=== PATIENT | male | born 1995 | race Caucasian/White ===

== ENCOUNTER → 2022-02-06 | Outpatient (CLI) | payer BC ==
[2022-02-06 10:17] LABS: BASO # 0.1 10*3/uL (0.0-0.1); BASO % 0.8 % (0.0-1.0); EOS # 0.2 10*3/uL (0.0-0.4); EOS % 2.8 % (1.0-4.0); HEMATOCRIT 50.9 % (42.0-52.0); LYMPH % 32.3 % (27.0-41.0); MEAN CELL VOLUME 87.3 fl (80.0-94.0); MEAN CORPUSCULAR HGB 30.9 pg (27.0-31.0); MEAN CORPUSCULAR HGB CONC 35.4 g/dl (33.0-37.0); MEAN PLATELET VOLUME 9.8 fl (9.6-12.3); MONO # 0.9 10*3/uL (0.1-1.0); MONO % 13.8 % (3.0-9.0); NEUT # 3.2 10*3/uL (2.3-7.9); NEUT % 50.1 % (47.0-73.0); PLATELET COUNT AUTOMATED 225 10*3/uL (130-400); RED BLOOD COUNT 5.83 10*6/uL (4.50-5.90); RED CELL DISTRI WIDTH 12.6 % (0-14.5); RETICULOCYTE % 1.91 % (0.50-2.50); WHITE BLOOD COUNT 6.3 10*3/uL (4.8-10.8)
[2022-02-06 10:28] LABS: BILIRUBIN Negative (Negative); BLOOD Negative (Negative); CLARITY Clear (Clear); COLOR Yellow (Yellow); GLUCOSE Negative (Negative); KETONE Negative (Negative); LEUKO ESTERASE Negative (Negative); NITRITE Negative (Negative); SPECIFIC GRAVITY 1.025 (1.001-1.030)
[2022-02-06 10:41] LABS: BACTERIA 1+; MUCOUS 1+; RBC 0-2 rbc/hpf (0-2)
[2022-02-06 10:44] LABS: BUN 11 mg/dl (7-24); CHLORIDE 104 mmol/L (98-107); CHOLESTEROL 141 mg/dL (<200); GAMMA GLUTAMYL TRANSPEPTIDASE 43 U/L (15-85); POTASSIUM 4.4 mmol/L (3.5-5.1); SODIUM 137 mmol/L (136-145); TRIGLYCERIDES 190 mg/dl (<150)
[2022-02-06 10:54] LABS: ALKALINE PHOSPHATASE 79 U/L (45-117); IRON 217 ug/dL (65-175); LDL CHOLESTEROL 66 mg/dL (9-159); SGOT/AST 23 IU/L (3-35); SGPT/ALT 57 U/L (12-78); TOTAL IRON BINDING CAPACITY 289 ug/dl (250-450); TOTAL PROTEIN 7.8 gm/dL (6.4-8.2); URIC ACID 6.8 mg/dL (3.5-7.2)
[2022-02-06 11:39] LABS: VITAMIN D, 25-HYDROXY 9.9 ng/mL (30-100)
[2022-02-06 11:40] LABS: FERRITIN 74.3 ng/mL (22.0-322.0)
[2022-02-07 04:06] LABS: RHEUMATOID FACTOR <10.0 IU/mL (<14.0)
[2022-02-07 14:08] LABS: ANTI-DSDNA ANTIBODIES <1 IU/mL (0-9)
== END | disposition home or self-care (01) ==
LOC: LAB 08:57 → US 09:00
PROVIDERS: ATTEND Family Medicine
DX: R10.84 Generalized abdominal pain (principal); R53.83 Other fatigue; E78.5 Hyperlipidemia, unspecified; E55.9 Vitamin D deficiency, unspecified; R79.89 Other specified abnormal findings of blood chemistry; R10.9 Unspecified abdominal pain